=== PATIENT | female | born 1945 | race African-American/Black ===

== ENCOUNTER 2019-02-10 11:42 | Inpatient (IN) | payer MEDICARE ==
--- NOTE | 2019-02-10 12:06 | Emergency Department Report ---
Blank Doc - Documentation Documentation: This is a 73-year-old female that presents with chest pain and SOB. This initial assessment/diagnostic orders/clinical plan/treatment(s) is/are subject to change based on patient's health status, clinical progression and re- assessment by fellow clinical providers in the ED. Further treatment and workup at subsequent clinical providers discretion. Patient/guardians urged not to elope from the ED as their condition may be serious if not clinically assessed and managed. Initial orders include: 1- Patient sent to MAIN ED for further evaluation and treatment 2- labs 3- EKG 4- CXR
[2019-02-10 12:32] LABS: Basophils # (Auto) 0.1 K/mm3 (0.0-0.1); Basophils % (Auto) 0.9 % (0.0-1.8); Eosinophils # (Auto) 0.1 K/mm3 (0.0-0.4); Eosinophils % (Auto) 1.7 % (0.0-4.3); Hematocrit 43.7 % (30.3-42.9); Hemoglobin 14.6 gm/dl (10.1-14.3); Lymphocytes # (Auto) 1.7 K/mm3 (1.2-5.4); Lymphocytes % (Auto) 30.2 % (13.4-35.0); Mean Corpuscular HGB Conc 33 % (30-34); Mean Corpuscular Volume 97 fl (79-97); Monocytes # (Auto) 0.3 K/mm3 (0.0-0.8); Monocytes % (Auto) 5.4 % (0.0-7.3); Platelet Count 264 K/mm3 (140-440); Red Cell Distribution Width 12.6 % (13.2-15.2)
[2019-02-10 12:44] LABS: INR 0.86 (0.87-1.13)
[2019-02-10 12:45] LABS: Partial Thromboplastin Time 30.5 Sec. (24.2-36.6)
--- NOTE | 2019-02-10 12:47 | XRay Report ---
Chest 2 views: History: Chest pain.: Cardiomegaly. Trachea is midline. No consolidation, pneumothorax or pleural effusion. Impression: No acute cardiopulmonary findings.
[2019-02-10 12:57] LABS: BUN/Creatinine Ratio 26; Blood Urea Nitrogen 13 mg/dL (7-17); Calcium 9.3 mg/dL (8.4-10.2); Hemolysis Index 5
[2019-02-10] MEDS ORDERED: NITRO-BID 2% TP ONE (13:20)
[2019-02-10] MEDS ORDERED: ASPIRIN PO ONE (13:20)
[2019-02-10] MEDS ORDERED: ZOFRAN IV ONE (13:20)
[2019-02-10] MEDS ORDERED: SUBLIMAZE IV ONE (13:20)
--- NOTE | 2019-02-10 13:26 | Emergency Department Report ---
HPI - General Chief Complaint: Chest Pain Time Seen by Provider: 02/10/19 12:04 - [facility] HPI: Room 24 The patient is 73-year-old female presenting with a chief complaint of chest pain. The patient states for the past week she has had substernal chest pain associated with shortness of breath. Patient denies nausea/vomiting or diaphoresis. Patient denies lower extremity edema. The patient currently gives her pain is scored 5-6/10. Patient states she had a stress test several months ago but does not know the results. 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 - Family History Family history: no significant - Social History Smoking Status: Never Smoker Substance Use Type: None ED Review of Systems ROS: Stated complaint: CHEST PAIN/SOB Other details as noted in HPI Constitutional: denies: diaphoresis Eyes: denies: eye pain Respiratory: shortness of breath Cardiovascular: chest pain Endocrine: no symptoms reported Gastrointestinal: denies: nausea, vomiting Genitourinary: denies: dysuria Musculoskeletal: denies: back pain Neurological: denies: headache Physical Exam - Physical Exam Vital Signs: Vital Signs 02/10/19 11:58 Temperature 98.1 F Pulse Rate 77 Respiratory 16 Rate Blood Pressure 173/78 Physical Exam: GENERAL: The patient is well-developed well-nourished female sitting in chair not appearing to be in acute distress. [] HEENT: Normocephalic. Atraumatic. Extraocular motions are intact. Patient has moist mucous membranes. NECK: Supple. Trachea midline CHEST/LUNGS: Clear to auscultation. There is no respiratory distress noted. HEART/CARDIOVASCULAR: Regular. There is no tachycardia. There is no gallop rub or murmur. ABDOMEN: Abdomen is soft, nontender. Patient has normal bowel sounds. There is no abdominal distention. SKIN: There is no rash. There is no edema. There is no diaphoresis. NEURO: The patient is awake, alert, and oriented. The patient is cooperative. The patient has normal speech MUSCULOSKELETAL: There is no evidence of acute injury. ED Course Vital Signs 02/10/19 11:58 Temperature 98.1 F Pulse Rate 77 Respiratory 16 Rate Blood Pressure 173/78 ED Medical Decision Making - Lab Data Result diagrams: 02/10/19 12:11 02/10/19 12:11 - EKG Data -: EKG Interpreted by Me EKG shows normal: sinus rhythm Rate: normal - EKG Data When compared to previous EKG there are: previous EKG unavailable Interpretation: other (no ischemic changes seen) - Radiology Data Radiology results: report reviewed (chest x-ray), image reviewed (chest x-ray) interpreted by me: Chest x-ray-no focal infiltrate, no pneumothorax - Differential Diagnosis ACS, CHF, pericarditis, GERD Critical care attestation.: If time is entered above; I have spent that time in minutes in the direct care of this critically ill patient, excluding procedure time. ED Disposition Clinical Impression: Chest pain Disposition: DC-09 OP ADMIT IP TO THIS HOSP Is pt being admited?: Yes Does the pt Need Aspirin: Yes Condition: Fair Instructions: Chest Pain (ED) Time of Disposition: 13:31 (hospitalist notified (Dr. Romero))
--- NOTE | 2019-02-10 13:27 | History and Physical Report ---
History of Present Illness Chief complaint: I have pain in my chest History of present illness: 73 YO Female with Dementia, HTN, HLD presents to ED for evaluation. Pt states that she has experienced pain in her chest over the past week. Pt states that the pain was initially intermittent, but has now become constant over the past 1 day. Pt states that pain is 5-6/10, constant, crushing in nature, substernal, nonradiating, worsened with exertion, relieved with rest, associated with shortness of breath and decreased exercise tolerance. Pt acknowledges chest palpitations. Pt denies fever, chills, NVD, Trauma, Skin rash, BRBPR, productive cough, recent ill contacts. Pt transported to [facility] via private vehicle. Pt seen and evaluated in ED and found to have Angina as well as symptoms consistent with CHF Decompensation. Pt admitted to telemetry. Cardiology consulted in ED. No prior admission for review. All listed medication reconciled at time of admission. Past History Past Medical History: hypertension, hyperlipidemia, other (Dementia) Past Surgical History: bowel surgery Social history: single. denies: smoking, alcohol abuse, prescription drug abuse Family history: hypertension Medications and Allergies Allergies Allergy/AdvReac Type Severity Reaction Status Date / Time No Known Allergies Allergy Unverified 02/10/19 12:09 Home Medications Medication Instructions Recorded Confirmed Last Taken Type Alendronate Sodium 35 mg PO QWEEK 02/10/19 02/10/19 Unknown History AtorvaSTATin [Lipitor] 20 mg PO QHS 02/10/19 02/10/19 Unknown History Donepezil HCl [Donepezil HCl Odt] 10 mg PO DAILY 02/10/19 02/10/19 Unknown History Lisinopril [Zestril TAB] 10 mg PO QDAY 02/10/19 02/10/19 Unknown History Solifenacin Succinate [Vesicare] 5 mg PO QDAY 02/10/19 02/10/19 Unknown History Review of Systems Constitutional: no weight loss, no weight gain, no fever, no chills Ears, nose, mouth and throat: no ear pain, no ear discharge, no tinnitis, no decreased hearing, no nose pain Breasts: no change in shape, no swelling, no mass Cardiovascular: chest pain, palpitations, shortness of breath, dyspnea on exertion, decreased exercise tolerance, no orthopnea, no paroxysmal nocturnal dyspnea Respiratory: no cough, no cough with sputum, no excessive sputum, no hemoptysis Gastrointestinal: no nausea, no vomiting, no diarrhea, no constipation Genitourinary Female: no pelvic pain, no flank pain, no menorrhagia, no dysuria, no urinary frequency Rectal: no pain, no incontinence Musculoskeletal: no neck stiffness, no neck pain, no shooting arm pain, no arm numbness/tingling, no low back pain Integumentary: no rash, no pruritis, no redness, no sores, no wounds Neurological: no paralysis, no weakness, no parathesias, no numbness, no tingling Psychiatric: no anxiety, no memory loss, no change in sleep habits, no sleep disturbances, no insomnia Endocrine: no cold intolerance, no heat intolerance, no polyphagia, no excessive thirst, no polydipsia, no weight change Hematologic/Lymphatic: no easy bruising, no easy bleeding, no lymphadenopathy, no lymphedema Allergic/Immunologic: no urticaria, no allergic rhinitis, no wheezing, no persistent infections, no anaphylaxis Exam - Constitutional Vitals: Temp Pulse Resp BP Pulse Ox 98.1 F 77 16 173/78 02/10/19 11:58 02/10/19 11:58 02/10/19 11:58 02/10/19 11:58 General appearance: Present: mild distress - EENT Eyes: Present: PERRL ENT: hearing intact, clear oral mucosa - Neck Neck: Present: supple, normal ROM - Respiratory Respiratory effort: normal Respiratory: bilateral: CTA - Cardiovascular Heart Sounds: Present: S1 & S2. Absent: rub, click - Extremities Extremities: pulses symmetrical Extremity abnormal: edema Peripheral Pulses: within normal limits - Abdominal General gastrointestinal: Present: soft, non-tender, non-distended, normal bowel sounds Female genitourinary: Present: normal - Integumentary Integumentary: Present: clear, warm, dry - Musculoskeletal Musculoskeletal: gait normal, strength equal bilaterally - Psychiatric Psychiatric: appropriate mood/affect, intact judgment & insight - Neurologic Neurologic: CNII-XII intact, moves all extremities Results - Labs CBC & Chem 7: 02/10/19 12:11 02/10/19 12:11 Labs: Abnormal lab results 02/10/19 02/10/19 02/10/19 Range/Units 12:11 12:11 12:11 Hgb 14.6 H (10.1-14.3) gm/dl Hct 43.7 H (30.3-42.9) % RDW 12.6 L (13.2-15.2) % INR 0.86 L (0.87-1.13) Creatinine 0.5 L (0.7-1.2) mg/dL Glucose 106 H (65-100) mg/dL Assessment and Plan - Patient Problems (1) CHF (congestive heart failure) Current Visit: Yes Status: Acute Qualifiers: Heart failure type: diastolic Heart failure chronicity: acute Qualified Code(s): I50.31 - Acute diastolic (congestive) heart failure Plan to address problem: Admit to telemetry: Cardiology consulted in ED, Echo pending at time of admission, strict I/O, daily weight, thyroid panel, magnesium level, monitor uop q shift, afterload reduction, BNP, chest x ray. (2) Angina at rest Current Visit: Yes Status: Acute Plan to address problem: Serial cardiac enzymes, ekg, telemetry, stress test, morphine, supplemental oxygen, nitro, aspirin, (3) HTN (hypertension) Current Visit: Yes Status: Acute Qualifiers: Hypertension type: essential hypertension Qualified Code(s): I10 - Essential (primary) hypertension Plan to address problem: monitor bp q shift, continue antihypertensive therapy. (4) HLD (hyperlipidemia) Current Visit: Yes Status: Acute Qualifiers: Hyperlipidemia type: mixed hyperlipidemia Qualified Code(s): E78.2 - Mixed hyperlipidemia Plan to address problem: Low cholesterol diet, statin therapy, lipid panel (5) DVT prophylaxis Current Visit: Yes Status: Acute Plan to address problem: SCD to BLE while in bed, prophylactic lovenox
[2019-02-10] MEDS ORDERED: TYLENOL PO PRN (13:50)
[2019-02-10] MEDS ORDERED: BABY ASPIRIN PO STA (13:50)
[2019-02-10] MEDS ORDERED: NITROSTAT SL PRN (13:50)
[2019-02-10] MEDS ORDERED: SODIUM CHLORIDE FLUSH SYRINGE 10 ML IV PRN ×2 (13:50)
[2019-02-10] MEDS ORDERED: ZOFRAN IV PRN (13:50)
[2019-02-10 15:00] LABS: Chol/HDL Ratio 3.49 %
[2019-02-10 15:36] VITALS: BP 146/64
[2019-02-10] MEDS ORDERED: LOVENOX SUB-Q SCH (22:00)
[2019-02-10] MEDS ORDERED: SODIUM CHLORIDE FLUSH SYRINGE 10 ML IV SCH (22:00)
[2019-02-10] MEDS ORDERED: PEPCID PO SCH (22:00)
[2019-02-10] MEDS ORDERED: ARICEPT PO SCH (22:00)
[2019-02-11] MEDS ORDERED: NON-FORMULARY (Solifenacin Succinate [Vesicare] 5 MG) PO SCH (10:00)
[2019-02-11] MEDS ORDERED: NON-FORMULARY (Donepezil Hcl [Donepezil Hcl Odt] 10 MG) PO SCH (10:00)
[2019-02-11] MEDS ORDERED: ZESTRIL PO SCH (10:00)
[2019-02-17] MEDS ORDERED: FOSAMAX PO SCH (06:00)
[2019-02-17] MEDS ORDERED: ALENDRONATE SODIUM 35 MG PO SCH (10:00)
== END 2019-02-10 17:40 | disposition left against medical advice (07) | DRG 291 ==
LOC: ED 11:42 → 4A 13:50
PROVIDERS: ADMIT Internal Medicine; ATTEND Internal Medicine
DX: I11.0 Hypertensive heart disease with heart failure (principal); I50.31 Acute diastolic (congestive) heart failure; I20.8 Other forms of angina pectoris; E78.2 Mixed hyperlipidemia; F03.90 Unspecified dementia, unspecified severity, without behavioral disturbance, psychotic disturbance, mood disturbance, and anxiety; Z82.49 Family history of ischemic heart disease and other diseases of the circulatory system; Z79.899 Other long term (current) drug therapy
CPT/HCPCS: 36415; 71046; 80048; 80061; 83880; 84484; 85025; 85379; 85610; 85730; 93005; 93010; 96374; 96375; G0378; J2405; J3010

== ENCOUNTER 2019-10-13 12:25 | Outpatient (CLI) | payer MEDICARE ==
[2019-10-13 13:07] LABS: Hematocrit 41.4 % (30.3-42.9); Hemoglobin 13.8 gm/dl (10.1-14.3); Mean Corpuscular HGB Conc 33 % (30-34); Mean Corpuscular Volume 98 fl (79-97); Platelet Count 280 K/mm3 (140-440); Red Blood Count 4.22 M/mm3 (3.65-5.03); Red Cell Distribution Width 13.1 % (13.2-15.2)
[2019-10-13 13:28] LABS: Alanine Aminotransferase 12 units/L (7-56); Albumin 4.1 g/dL (3.9-5); BUN/Creatinine Ratio 28; Blood Urea Nitrogen 11 mg/dL (7-17); Calcium 9.2 mg/dL (8.4-10.2); Hemolysis Index 5
[2019-10-13 13:29] LABS: Erythrocyte Sedimentation Rate 10 mm/Hr (0-20)
== END 2019-10-13 12:26 | disposition home or self-care (01) ==
LOC: LAB 12:25
PROVIDERS: ATTEND Specialist
DX: G50.0 Trigeminal neuralgia (principal); I10 Essential (primary) hypertension
CPT/HCPCS: 36415; 80053; 85027; 85652